=== PATIENT | male | born 1955 | race Caucasian/White ===

== ENCOUNTER 2017-01-31 19:40 | Inpatient (IN) | payer OTHER ==
[~2017-01-31] VITALS: Ht 177.8 cm; Wt 92.3 kg
[~2017-01-31 19:40] MED LIST: ACET325T9 PO; ASPI81TA2 PO; ATOR20TA PO; CALC500T PO; CALC625T7 PO; DOCU-27 PO; FERR-26 PO; FURO-69 PO; ISOS30TA PO; LISI-334 PO; METO25TA9 PO; PANT40GR PO; POTA10TA10 PO; [UNRECOGNIZED DRUG - CODE] PO
[2017-01-31] MEDS ORDERED: NITROGLYCERIN SUBLINGUAL 0.4 MG BOTTLE OF 25. SL PRN ×2 (20:00→21:15)
--- NOTE | 2017-01-31 20:11 | PHYS DOC ---
Past Medical History Past Medical History: SC, Other Additional Past Medical Histor: pt would not give Past Surgical History: Other Additional Past Surgical Histo: pt not willing to give history Alcohol Use: None Drug Use: None Adult General Chief Complaint Chief Complaint: CHEST PAIN HPI HPI 61-year-old male presenting to the emergency room today after having chest pain for the past 3 days. His pain is sharp and burning sensation that he describes as "a hot knife in his chest." He describes it as severe, is mildly improved with nitroglycerin. He took 2 nitroglycerin last night and this morning. 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 He endorses having nausea with vomiting. He also endorses feeling "clammy". He denies unilateral leg swelling hemoptysis sudden onset of the pain. He does have mild shortness of breath. Review of systems is negative for abdominal pain vomiting fevers chills cough. All other review of systems is negative unless otherwise noted in history of present illness. Review of Systems Review of Systems SEE ABOVE. Current Medications Current Medications Current Medications Medications (Trade) Dose Ordered Sig/Briseida Start Time Stop Time Status Last Admin Dose Admin Aspirin (Children'S Aspirin) 324 mg 1X ONCE 01/31/17 20:30 01/31/17 20:31 DC Enoxaparin Sodium (Lovenox 100mg Syringe) 90 mg Q12HR 01/31/17 21:00 Enoxaparin Sodium (Lovenox Per Pharmacy Treatment Dosing) 1 each PRN DAILY PRN 01/31/17 21:00 Morphine Sulfate 2 mg 2 mg PRN Q1HR PRN 01/31/17 20:00 02/01/17 19:59 Nitroglycerin (Nitrostat) 0.4 mg PRN Q5MIN PRN 01/31/17 20:00 01/31/17 20:13 0.4 MG Sodium Chloride (Iv Sodium Chloride 0.9% 500ml Bag) 500 ml @ 500 mls/hr 1X ONCE 01/31/17 20:45 01/31/17 21:44 01/31/17 20:36 500 MLS/HR Allergies Allergies Allergies Coded Allergies Type Severity Reaction Last Updated Verified Penicillins Allergy Intermediate 04/26/14 Yes Physical Exam Physical Exam Constitutional: Well developed, well nourished, patient appears to be in a mild to moderate amount of pain., non-toxic appearance. HENT: Normocephalic, atraumatic, bilateral external ears normal, oropharynx moist, no oral exudates, nose normal. [] Eyes: PERRLA, EOMI, conjunctiva normal, no discharge. [] Neck: Normal range of motion, no tenderness, supple, no stridor. Cardiovascular:Heart rate regular rhythm, no murmur [] Lungs & Thorax: Bilateral breath sounds clear to auscultation [] Abdomen: Bowel sounds normal, soft, no tenderness, no masses, no pulsatile masses. Skin: Warm, dry, no erythema, no rash. [] Back: No tenderness, no CVA tenderness. [] Extremities: No tenderness, no cyanosis, no clubbing, ROM intact, no edema. No evidence of DVT present. Neurologic: Alert and oriented X 3, normal motor function, normal sensory function, no focal deficits noted. [] Psychologic: Affect normal, judgement normal, mood normal. Current Patient Data Vital Signs Vital Signs Date Time Temp Pulse Resp B/P Pulse Ox O2 Delivery O2 Flow Rate FiO2 01/31/17 20:31 72 23 107/73 96 Room Air 01/31/17 19:40 98.3 98.3 Lab Values Laboratory Tests Test 01/31/17 20:15 White Blood Count 7.6x10^3/uL (4.0-11.0) Red Blood Count 4.98x10^6/uL (4.30-5.70) Hemoglobin 14.1g/dL (13.0-17.5) Hematocrit 42.5% (39.0-53.0) Mean Corpuscular Volume 85fL (79-100) Mean Corpuscular Hemoglobin 28pg (25-35) Mean Corpuscular Hemoglobin Concent 33g/dL (31-37) Red Cell Distribution Width 13.6% (11.5-14.5) Platelet Count 213x10^3/uL (140-400) Neutrophils (%) (Auto) 63% (31-73) Lymphocytes (%) (Auto) 24% (24-48) Monocytes (%) (Auto) 10% (0-9) H Eosinophils (%) (Auto) 2% (0-3) Basophils (%) (Auto) 1% (0-3) Neutrophils # (Auto) 4.8x10^3uL (1.8-7.7) Lymphocytes # (Auto) 1.8x10^3/uL (1.0-4.8) Monocytes # (Auto) 0.7x10^3/uL (0.0-1.1) Eosinophils # (Auto) 0.2x10^3/uL (0.0-0.7) Basophils # (Auto) 0.1x10^3/uL (0.0-0.2) Sodium Level 139mmol/L (136-145) Potassium Level 3.8mmol/L (3.5-5.1) Chloride Level 105mmol/L (98-107) Carbon Dioxide Level 25mmol/L (21-32) Anion Gap 9 (6-14) Blood Urea Nitrogen 27mg/dL (8-26) H Creatinine 1.0mg/dL (0.7-1.3) Estimated GFR (Cockcroft-Gault) 76.2 Glucose Level 183mg/dL (70-99) H Calcium Level 8.9mg/dL (8.5-10.1) Total Bilirubin 0.3mg/dL (0.2-1.0) Direct Bilirubin 0.1mg/dL (0.0-0.2) Aspartate Amino Transferase (AST) 29U/L (15-37) Alanine Aminotransferase (ALT) 53U/L (16-63) Alkaline Phosphatase 80U/L (46-116) Troponin I Quantitative 0.164ng/mL (0.000-0.055) WJ-Eyt-M-Type Natriuretic Peptide 132pg/mL (0-124) H Total Protein 7.2g/dL (6.4-8.2) Albumin 3.8g/dL (3.4-5.0) Lipase 150U/L (73-393) Laboratory Tests 01/31/17 20:15 Laboratory Tests 01/31/17 20:15 EKG EKG [] EKG shows sinus rhythm with a regular rate. [place] is leftward. Intervals are within normal limits. The patient's ST segments show mild ST elevation in lead V1 without other anatomically contiguous leads. Mild ST depression in lead 1 and lead two. Does not meet STEMI criteria. Compared to previous on June 302013. Radiology/Procedures Radiology/Procedures [] Course & Med Decision Making Course & Med Decision Making Pertinent Labs and Imaging studies reviewed. (See chart for details) [] 61-year-old gentleman presenting to the emergency department today with chest pain. Vital signs afebrile with a normal heart rate. Satting well on room air. Physical exam showed mild discomfort however otherwise normal exam. EKG obtained which did not meet STEMI criteria. Blood tests obtained. Chest x-ray obtained. CBC unremarkable. Chemistry panel shows uremia otherwise unremarkable. Troponin elevated at 0.16. I discussed the case with Dr. Thomas at 2029. The patient was given Lovenox and then admitted to our cardiovascular care unit for further evaluation workup and care. I discussed the case with Dr. Cottrell at 2029 who excepted the patient for admission at which point the patient's care was transferred. The patient was then admitted to our hospital for further evaluation workup and care. Dragon Disclaimer Dragon Disclaimer This electronic medical record was generated, in whole or in part, using a voice recognition dictation system. Departure Departure Impression: Primary Impression: NSTEMI (non-ST elevated myocardial infarction) Additional Impressions: Chest pain CAD (coronary artery disease) Disposition: ADMITTED INPATIENT Admitting Physician: Lavell Cottrell Condition: STABLE Referrals: JERSEY CAIN (PCP) Problem Qualifiers KARY MANUEL MD Jan 31, 2017 20:11
[2017-01-31 20:25] LABS: BASO # 0.1 x10^3/uL (0.0-0.2); BASO % 1 % (0-3); EOS % 2 % (0-3); HEMATOCRIT 42.5 % (39.0-53.0); HEMOGLOBIN 14.1 g/dL (13.0-17.5); LYMPH # 1.8 x10^3/uL (1.0-4.8); LYMPH % 24 % (24-48); MEAN CORPUSCULAR HEMOGLOBIN 28 pg (25-35); MEAN CORPUSCULAR HGB CONC 33 g/dL (31-37); MEAN CORPUSCULAR VOLUME 85 fL (79-100); MONO % 10 % (0-9); NEUT % 63 % (31-73); PLATELET COUNT 213 x10^3/uL (140-400); RED BLOOD COUNT 4.98 x10^6/uL (4.30-5.70); RED CELL DISTRIBUTION WIDTH 13.6 % (11.5-14.5); WHITE BLOOD COUNT 7.6 x10^3/uL (4.0-11.0)
[2017-01-31] MEDS ORDERED: ASPIRIN CHEWABLE 81 MG TABLET. PO ONE (20:30)
[2017-01-31 20:36] LABS: CALCIUM 8.9 mg/dL (8.5-10.1); GFR 76.2; POTASSIUM 3.8 mmol/L (3.5-5.1)
[2017-01-31 20:42] LABS: ALBUMIN 3.8 g/dL (3.4-5.0); DIRECT BILIRUBIN 0.1 mg/dL (0.0-0.2); TOTAL BILIRUBIN 0.3 mg/dL (0.2-1.0); TOTAL PROTEIN 7.2 g/dL (6.4-8.2)
[2017-01-31] MEDS ORDERED: IV NORMAL SALINE 500ML BAG 500 ML IV ONE (20:45)
[2017-01-31] MEDS ORDERED: ONDANSETRON PF 4 MG/2 ML VIAL. IV PRN (21:15)
[2017-01-31] MEDS ORDERED: MORPHINE SULFATE 2 MG/ML DISP.SYRIN. IV PRN (21:15)
[2017-01-31 22:11] VITALS: BP 145/83
[2017-01-31] MEDS: MORPHINE SULFATE 2 MG/ML DISP.SYRIN. IV PRN (22:59)
[2017-01-31 23:00] VITALS: BP 145/83
[2017-01-31] MEDS ORDERED: NITR0.4T6 SL (23:33)
[2017-01-31] MEDS ORDERED: GEMF600T PO (23:33)
[2017-01-31] MEDS ORDERED: CALC200T3 PO (23:35)
[2017-01-31] MEDS ORDERED: ISOS30TA4 PO (23:35)
[2017-01-31] MEDS ORDERED: METO100T2 PO (23:35)
[2017-01-31] MEDS ORDERED: ISOS60TA2 PO (23:35)
[2017-02-01] MEDS: MORPHINE SULFATE 2 MG/ML DISP.SYRIN. IV PRN ×2 (03:13→06:16)
[2017-02-01 03:30] VITALS: BP 128/71
[2017-02-01 03:31] LABS: BASO # 0.1 x10^3/uL (0.0-0.2); BASO % 1 % (0-3); EOS % 3 % (0-3); HEMOGLOBIN 13.6 g/dL (13.0-17.5); LYMPH # 2.8 x10^3/uL (1.0-4.8); LYMPH % 35 % (24-48); MEAN CORPUSCULAR HEMOGLOBIN 29 pg (25-35); MEAN CORPUSCULAR HGB CONC 33 g/dL (31-37); MEAN CORPUSCULAR VOLUME 86 fL (79-100); MONO % 10 % (0-9); NEUT % 51 % (31-73); PLATELET COUNT 195 x10^3/uL (140-400); RED BLOOD COUNT 4.77 x10^6/uL (4.30-5.70); RED CELL DISTRIBUTION WIDTH 13.2 % (11.5-14.5)
[2017-02-01 03:58] LABS: CALCIUM 8.5 mg/dL (8.5-10.1); CREATININE 0.9 mg/dL (0.7-1.3); GFR 86.1; POTASSIUM 3.7 mmol/L (3.5-5.1)
[2017-02-01 07:00] VITALS: BP 135/79
[2017-02-01] MEDS ORDERED: ONDANSETRON PF 4 MG/2 ML VIAL. IV PRN (08:51)
--- NOTE | 2017-02-01 08:55 | RAD ---
Portable AP upright view CXR: Clinical indications: Chest pain today. Comparison: June 30, 2014 Findings: No acute lung infiltrate or pleural effusion or pulmonary edema or lung mass or pneumothorax is seen. A sternotomy is evident. The heart size, pulmonary vasculature, mediastinum and both denise are unremarkable. Impression: No acute radiographic abnormality is seen.
[2017-02-01] MEDS: GEMFIBROZIL 600 MG TABLET. PO SCH ×2 (10:36→21:00)
[2017-02-01] MEDS: CALCIUM CARBONATE 500 MG TAB.CHEW PO SCH ×2 (10:39→21:00)
[2017-02-01] MEDS: ISOSORBIDE MONONITRATE ER 60 MG TAB.ER.24H. PO SCH (10:39)
[2017-02-01] MEDS: METOPROLOL TART IMMED RELEASE 50 MG TABLET. PO SCH ×2 (10:40→21:00)
[2017-02-01 11:33] VITALS: BP 134/77
--- NOTE | 2017-02-01 11:39 | PDOC1 ---
History and Physical Date of Admission Date of Admission DATE: 02/01/17 TIME: 11:34 Identification/Chief Complaint Chief Complaint chest pains at rest in usp Source Source: Caregiver, Chart review, Patient History of Present Illness History of Present Illness 61 y.o male, incarcerated, cp at rest, described as left sided, knife stabbing reports associated diaphoresis, SOA< and like a panic attack, Known CAD and CABG 2 yrs ago here by Dr. Sánchez, LAs heart attack was Aug 2016 at [facility] in [facility]. NO stents placed he claims, takes ASA 81 at home along with Imdur 30 qhs and 60 qD, claims compliance,. Trops 0.161 2x Morphine he claims just lasts 2 mins Was told by [facility] 2 yrs ago that 40% (lower side of his heart) is not functioning or poorly functional - claims the veins they took from his leg are small and he might get vasospasms intermittently Past Medical History Cardiovascular: CAD, CHF, HTN, Hyperlipidemia Pulmonary: No pertinent hx CENTRAL NERVOUS SYSTEM: Other GI: GERD Heme/Onc: No pertinent hx Hepatobiliary: No pertinent hx Psych: Anxiety, Depression Musculoskeletal: Osteoarthritis Rheumatologic: No pertinent hx Infectious disease: No pertinent hx Renal/: No pertinent hx Endocrine: No pertinent hx Past Surgical History Past Surgical History: CABG Family History Family History: Hypertension, Family History Unknown Social History Smoke: No ALCOHOL: none Drugs: None Current Problem List Problem List Problems Medical Problems: (1) CAD (coronary artery disease) Status: Acute (2) Chest pain Status: Acute (3) NSTEMI (non-ST elevated myocardial infarction) Status: Acute Problems: Current Medications Current Medications Current Medications Aspirin (Children'S Aspirin) 324 mg 1X ONCE PO ; Start 01/31/17 at 20:30; Stop 01/31/17 at 20:31; Status DC Nitroglycerin (Nitrostat) 0.4 mg PRN Q5MIN PRN SL CHEST PAIN Last administered on 01/31/17 20:13; Start 01/31/17 at 20:00; Stop 01/31/17 at 21:08; Status DC Morphine Sulfate 2 mg 2 mg PRN Q1HR PRN IV SEVERE PAIN Last administered on 02/01 06:16; Start 01/31/17 at 20:00; Stop 02/01/17 at 06:16; Status DC Sodium Chloride (Iv Sodium Chloride 0.9% 500ml Bag) 500 ml @ 500 mls/hr 1X ONCE IV Last administered on 01/31/17 20:36; Start 01/31/17 at 20:45; Stop at 21:44; Status DC Enoxaparin Sodium (Lovenox Per Pharmacy Treatment Dosing) 1 each PRN DAILY PRN MC SEE COMMENTS; Start 01/31/17 at 21:00 Enoxaparin Sodium (Lovenox 100mg Syringe) 90 mg Q12HR SQ Last administered on 10:37; Start 01/31/17 at 21:00 Ondansetron HCl (Zofran) 4 mg PRN Q8HRS PRN IV NAUSEA/VOMITING; Start 01/31/17 at 21:15; Stop 02/01/17 at 08:53; Status DC Morphine Sulfate 2 mg PRN Q2HR PRN IV PAIN Last administered on 02/01/17 10:42 ; Start 01/31/17 at 21:15; Stop 02/01/17 at 21:14 Nitroglycerin (Nitrostat) 0.4 mg PRN Q5MIN PRN SL CHEST PAIN; Start 01/31/17 at 21:15; Stop 02/01/17 at 21:14 Ondansetron HCl (Zofran) 4 mg PRN Q6HRS PRN IV NAUSEA/VOMITING; Start 02/01/17 at 08:51 Aspirin (Children'S Aspirin) 81 mg HS PO ; Start 02/01/17 at 21:00 Calcium Carbonate/ Glycine (Tums) 500 mg BID PO Last administered on 02/01/17 10:39; Start 02/01/17 at 09:00 Gemfibrozil (Lopid) 600 mg BID PO Last administered on 02/01/17 10:36; Start at 09:00 Isosorbide Mononitrate (Imdur) 30 mg HS PO ; Start 02/01/17 at 21:00 Isosorbide Mononitrate (Imdur) 60 mg DAILY PO Last administered on 02/01/17 10: 39; Start 02/01/17 at 09:00 Nitroglycerin (Nitrostat) 0.4 mg PRN Q5MIN PRN SL CHEST PAIN; Start 02/01/17 at 09:00 Metoprolol Tartrate (Lopressor) 100 mg BID PO Last administered on 02/01/17t 10: 40; Start 02/01/17 at 09:15 Active Scripts Active Reported Isosorbide Mononitrate Er (Isosorbide Mononitrate) 30 Mg Tab.er.24h 1 Tab PO HS Isosorbide Mononitrate Er (Isosorbide Mononitrate) 60 Mg Tab.er.24h 1 Tab PO DAILY Metoprolol Tartrate 100 Mg Tablet 1 Tab PO BID Tums (Calcium Carbonate) 200 Mg Tab.chew 400 Mg PO BID Lopid (Gemfibrozil) 600 Mg Tablet 2 Tab PO BID NITROGLYCERIN SubLingual (Nitroglycerin) 0.4 Mg Tab.subl 0.4 Mg SL PRN Q5MIN PRN Aspirin 81 Mg Tab.chew 81 Mg PO HS Allergies Allergies: Coded Allergies: Penicillins (Verified Allergy, Intermediate, 04/26/14) ROS General: No: Appetite, Chills, Fatigue, Malaise, Night Sweats, Other PSYCHOLOGICAL ROS: YES: Anxiety, No: Behavioral Disorder, Concentration difficultie, Decreased libido, Depression, Disorientation, Hallucinations, Hostility, Irritablity, Memory difficulties, Mood Swings, Obsessive thoughts, Other, Physical abuse, Sexual abuse, Sleep disturbances, Suicidal ideation Eyes: No Blurry vision, No Decreased vision, No Double vision, No Dry eyes, No Excessive tearing, No Eye Pain, No Itchy Eyes, No Loss of vision, No Other, No Photophobia, No Scotomata, No Uses contacts, No Uses glasses ALLERGY AND IMMUNOLOGY: YES: Hives, Insect Bite Sensitivity, Itchy/Watery Eyes , Nasal Congestion, Other, Post Nasal Drip, Seasonal Allergies Hematological and Lymphatic: No: Bleeding Problems, Blood Clots, Blood Transfusions, Brusing, Night Sweats, Other, Pallor, Swollen Lymph Nodes ENDOCRINE: No: Breast Changes, Galactorrhea, Hair Pattern Changes, Hot Flashes , Malaise/lethargy, Mood Swings, Other, Palpitations, Polydipsia/polyuria, Skin Changes, Temperature Intolerance, Unexpected Weight Changes Breast: No New/Changing Breast Lumps, No Nipple changes, No Nipple discharge, No Other Respiratory: YES: SOB with excertion, Shortness of breath Cardiovascular: yes Chest Pain Gastrointestinal: No Abdominal Pain, No Constipation, No Diarrhea, No Hematochezia, No Melena, No Nausea, No Other, No Vomiting Genitourinary: No , No , No , No , No , No , No , No Discharge, No Dysuria, No Flank Pain, No Frequency, No Hematuria, No Incontinence, No Other, No Pain, No Retention, No Urgency Musculoskeletal: No Gait Disturbance, No Joint Pain, No Joint Stiffness, No Joint Swelling, No Muscle Pain, No Muscular Weakness, No Other, No Pain In:, No Swelling In: Neurological: No Behavorial Changes, No Bowel/Bladder ControlChng, No Confusion , No Dizziness, No Gait Disturbance, No Headaches, No Impaired Coord/balance, No Memory Loss, No Numbness/Tingling, No Other, No Seizures, No Speech Problems , No Tremors, No Visual Changes, No Weakness Skin: No Acne, No Dry Skin, No Eczema, No Hair Changes, No Lumps, No Mole Changes, No Mottling, No Nail Changes, No Other, No Pruritus, No Rash, No Skin Lesion Changes Physical Exam General: Alert, Oriented X3, Cooperative, No acute distress HEENT: Atraumatic, PERRLA, EOMI Lungs: Clear to auscultation, Normal air movement Heart: S1S2, RRR, no thrills, no gallops, no murmurs Cardiovascular: S1, S2 Breasts: Normal, Rt breast nml w/o mass, Lt breast nml w/o mass, Nipples normal Abdomen: Normal bowel sounds, Soft, No tenderness, No hepatosplenomegaly, No masses Rectal Exam: not examined PELVIC: Nml ext genitalia Extremities: No clubbing, No cyanosis, No edema, Normal pulses, No tenderness/ swelling Skin: No rashes, No breakdown, No significant lesion Neuro: Normal gait, Normal speech, Strength at 5/5 X4 ext, Normal tone, Sensation intact, Cranial nerves 3-12 NL, Reflexes 2+ Psych/Mental Status: Mental status NL, Mood NL Vitals Vitals Vital Signs Date Time Temp Pulse Resp B/P Pulse Ox O2 Delivery O2 Flow Rate FiO2 02/01/17 10:42 97 02/01/17 10:40 82 134/77 02/01/17 07:00 97.4 18 Room Air 97.4 Labs Labs Laboratory Tests Test 01/31/17 20:15 02/01/17 02:30 02/01/17 08:40 White Blood Count 7.6x10^3/uL (4.0-11.0) 8.0x10^3/uL (4.0-11.0) Red Blood Count 4.98x10^6/uL (4.30-5.70) 4.77x10^6/uL (4.30-5.70) Hemoglobin 14.1g/dL (13.0-17.5) 13.6g/dL (13.0-17.5) Hematocrit 42.5% (39.0-53.0) 41.0% (39.0-53.0) Mean Corpuscular Volume 85fL (79-100) 86fL (79-100) Mean Corpuscular Hemoglobin 28pg (25-35) 29pg (25-35) Mean Corpuscular Hemoglobin Concent 33g/dL (31-37) 33g/dL (31-37) Red Cell Distribution Width 13.6% (11.5-14.5) 13.2% (11.5-14.5) Platelet Count 213x10^3/uL (140-400) 195x10^3/uL (140-400) Neutrophils (%) (Auto) 63% (31-73) 51% (31-73) Lymphocytes (%) (Auto) 24% (24-48) 35% (24-48) Monocytes (%) (Auto) 10% (0-9) 10% (0-9) Eosinophils (%) (Auto) 2% (0-3) 3% (0-3) Basophils (%) (Auto) 1% (0-3) 1% (0-3) Neutrophils # (Auto) 4.8x10^3uL (1.8-7.7) 4.1x10^3uL (1.8-7.7) Lymphocytes # (Auto) 1.8x10^3/uL (1.0-4.8) 2.8x10^3/uL (1.0-4.8) Monocytes # (Auto) 0.7x10^3/uL (0.0-1.1) 0.8x10^3/uL (0.0-1.1) Eosinophils # (Auto) 0.2x10^3/uL (0.0-0.7) 0.2x10^3/uL (0.0-0.7) Basophils # (Auto) 0.1x10^3/uL (0.0-0.2) 0.1x10^3/uL (0.0-0.2) Sodium Level 139mmol/L (136-145) 143mmol/L (136-145) Potassium Level 3.8mmol/L (3.5-5.1) 3.7mmol/L (3.5-5.1) Chloride Level 105mmol/L (98-107) 107mmol/L (98-107) Carbon Dioxide Level 25mmol/L (21-32) 26mmol/L (21-32) Anion Gap 9 (6-14) 10 (6-14) Blood Urea Nitrogen 27mg/dL (8-26) 24mg/dL (8-26) Creatinine 1.0mg/dL (0.7-1.3) 0.9mg/dL (0.7-1.3) Estimated GFR (Cockcroft-Gault) 76.2 86.1 Glucose Level 183mg/dL (70-99) 130mg/dL (70-99) Calcium Level 8.9mg/dL (8.5-10.1) 8.5mg/dL (8.5-10.1) Total Bilirubin 0.3mg/dL (0.2-1.0) Direct Bilirubin 0.1mg/dL (0.0-0.2) Aspartate Amino Transf (AST/SGOT) 29U/L (15-37) Alanine Aminotransferase (ALT/SGPT) 53U/L (16-63) Alkaline Phosphatase 80U/L (46-116) Troponin I Quantitative 0.164ng/mL (0.000-0.055) 0.161ng/mL (0.000-0.055) 0.155ng/mL (0.000-0.055) IM-Uhl-T-Type Natriuretic Peptide 132pg/mL (0-124) Total Protein 7.2g/dL (6.4-8.2) Albumin 3.8g/dL (3.4-5.0) Lipase 150U/L (73-393) Laboratory Tests Test 01/31/17 20:15 02/01/17 02:30 02/01/17 08:40 White Blood Count 7.6x10^3/uL (4.0-11.0) 8.0x10^3/uL (4.0-11.0) Red Blood Count 4.98x10^6/uL (4.30-5.70) 4.77x10^6/uL (4.30-5.70) Hemoglobin 14.1g/dL (13.0-17.5) 13.6g/dL (13.0-17.5) Hematocrit 42.5% (39.0-53.0) 41.0% (39.0-53.0) Mean Corpuscular Volume 85fL (79-100) 86fL (79-100) Mean Corpuscular Hemoglobin 28pg (25-35) 29pg (25-35) Mean Corpuscular Hemoglobin Concent 33g/dL (31-37) 33g/dL (31-37) Red Cell Distribution Width 13.6% (11.5-14.5) 13.2% (11.5-14.5) Platelet Count 213x10^3/uL (140-400) 195x10^3/uL (140-400) Neutrophils (%) (Auto) 63% (31-73) 51% (31-73) Lymphocytes (%) (Auto) 24% (24-48) 35% (24-48) Monocytes (%) (Auto) 10% (0-9) 10% (0-9) Eosinophils (%) (Auto) 2% (0-3) 3% (0-3) Basophils (%) (Auto) 1% (0-3) 1% (0-3) Neutrophils # (Auto) 4.8x10^3uL (1.8-7.7) 4.1x10^3uL (1.8-7.7) Lymphocytes # (Auto) 1.8x10^3/uL (1.0-4.8) 2.8x10^3/uL (1.0-4.8) Monocytes # (Auto) 0.7x10^3/uL (0.0-1.1) 0.8x10^3/uL (0.0-1.1) Eosinophils # (Auto) 0.2x10^3/uL (0.0-0.7) 0.2x10^3/uL (0.0-0.7) Basophils # (Auto) 0.1x10^3/uL (0.0-0.2) 0.1x10^3/uL (0.0-0.2) Sodium Level 139mmol/L (136-145) 143mmol/L (136-145) Potassium Level 3.8mmol/L (3.5-5.1) 3.7mmol/L (3.5-5.1) Chloride Level 105mmol/L (98-107) 107mmol/L (98-107) Carbon Dioxide Level 25mmol/L (21-32) 26mmol/L (21-32) Anion Gap 9 (6-14) 10 (6-14) Blood Urea Nitrogen 27mg/dL (8-26) 24mg/dL (8-26) Creatinine 1.0mg/dL (0.7-1.3) 0.9mg/dL (0.7-1.3) Estimated GFR (Cockcroft-Gault) 76.2 86.1 Glucose Level 183mg/dL (70-99) 130mg/dL (70-99) Calcium Level 8.9mg/dL (8.5-10.1) 8.5mg/dL (8.5-10.1) Total Bilirubin 0.3mg/dL (0.2-1.0) Direct Bilirubin 0.1mg/dL (0.0-0.2) Aspartate Amino Transf (AST/SGOT) 29U/L (15-37) Alanine Aminotransferase (ALT/SGPT) 53U/L (16-63) Alkaline Phosphatase 80U/L (46-116) Troponin I Quantitative 0.164ng/mL (0.000-0.055) 0.161ng/mL (0.000-0.055) 0.155ng/mL (0.000-0.055) IU-Ibm-F-Type Natriuretic Peptide 132pg/mL (0-124) Total Protein 7.2g/dL (6.4-8.2) Albumin 3.8g/dL (3.4-5.0) Lipase 150U/L (73-393) VTE Prophylaxis Ordered VTE Prophylaxis Devices: Yes VTE Pharmacological Prophylaxi: Yes Assessment/Plan Assessment/Plan 1. CP possible vasospasm, need to r.o Acute ACS 2. [place] CAD hx [place] and CABG 3. Incarcerated 4. Anxiety NOS 5, Trop leak PLAN: Add xanax Follow cards recs WIshes Dr. Martins to see him Sofi emds resumed MAXIMO De Guzman RN, MD Feb 01, 2017 11:39
[2017-02-01] MEDS ORDERED: ALPRAZOLAM 0.25 MG TABLET. PO PRN (11:45)
[2017-02-01] MEDS ORDERED: ALPRAZOLAM 0.5 MG TABLET. PO PRN (12:00)
--- NOTE | 2017-02-01 12:32 | EKG ---
[facility] [address] [place] [address] Test Date: 2017-01-31 Test Time: 19:50:52 Pat Name: LOGAN SCOTT Department: Room: Gender: M Posting Specialist: : [id number] Requested By: KARY MANUEL Order Number: [id number] Reading MD: Measurements Intervals [place] Rate: 72 P: 34 UT: 134 QRS: 27 QRSD: 94 T: -167 QT: 376 QTc: 413 Interpretive Statements SINUS RHYTHM QRS(T) CONTOUR ABNORMALITY CONSIDER ANTEROLATERAL MYOCARDIAL DAMAGE ST & T ABNORMALITY, CONSIDER INFERIOR ISCHEMIA OR LEFT VENTRICULAR STRAIN ABNORMAL ECG RI6.01 No previous ECG available for comparison
--- NOTE | 2017-02-01 12:34 | EKG ---
[facility] [address] [place] [address] Test Date: 2017-01-31 Test Time: 21:16:06 Pat Name: LOGAN SCOTT Department: Room: 208 1 Gender: M Regulatory Leader: : [id number] Requested By: JUAN DEJESUS Order Number: [id number] Reading MD: Measurements Intervals [place] Rate: 67 P: 35 [place]: 136 QRS: 34 QRSD: 84 T: -134 QT: 392 QTc: 417 Interpretive Statements SINUS RHYTHM QRS(T) CONTOUR ABNORMALITY CONSIDER ANTEROSEPTAL MYOCARDIAL DAMAGE ST & T ABNORMALITY, CONSIDER HIGH LATERAL ISCHEMIA OR LEFT VENTRICULAR STRAIN INFERIOR ISCHEMIA OR LEFT VENTRICULAR STRAIN T ABNORMALITY IN LATERAL LEADS ABNORMAL ECG RI6.01 No previous ECG available for comparison
[2017-02-01 15:42] VITALS: BP 114/66
--- NOTE | 2017-02-01 18:30 | PDOC ---
Provider Note Provider Note Covering for Dr. Modi. He describes the pain as being sharp pains in the retrosternal area and over the precordium. He has associated diaphoresis. He has had these pains for several years but for the last 3 days they have been more frequent. He had open heart surgery in April 2014. AMARAL to LAD, SVG to right coronary artery, SVG to OM and then to OM 2. He underwent cardiac catheterization in July 2014 for chest pain. All the grafts were open. Normal LV function. He says he was in [place] in August 2016 and underwent coronary arteriograms. He is unable to tell me whether the grafts were open or no. In any case I do not think any intervention was done. He did say that at that time his troponin was 0.29. Heart sounds are normal. Lung lowry are clear. EKG shows inverted T waves in leads I, II, III, aVF and V4 to V6. Last EKG we have was from 2013 and the T waves were not inverted at that time. Persistent mild elevation of the troponin at 0.16. He says he it's been a many years since he had an MPI. Because of the mild elevation in the troponin and EKG changes we will schedule an MPI for tomorrow. Dr. Modi returns tomorrow. JUAN DEJESUS MD Feb 01, 2017 18:30
[2017-02-01 19:40] VITALS: BP 112/65
[2017-02-01] MEDS: ASPIRIN CHEWABLE 81 MG TABLET. PO SCH (21:00)
[2017-02-01] MEDS: ISOSORBIDE MONONITRATE ER 30 MG TAB.ER.24H PO SCH (21:00)
[2017-02-01 23:35] VITALS: BP 109/60
[2017-02-02 03:15] VITALS: BP 102/58
[2017-02-02 05:26] LABS: CHOLESTEROL/HDL RATIO 5.9
[2017-02-02 07:59] VITALS: BP 125/70
[2017-02-02] MEDS ORDERED: REGADENOSON 0.4 MG/5 ML DISP.SYRIN. IV ONE (08:15)
[2017-02-02] MEDS ORDERED: ANTI-COAG MONITOR BY PHARMACY. MC PRN (08:45)
[2017-02-02] MEDS: CALCIUM CARBONATE 500 MG TAB.CHEW PO SCH ×2 (09:00→20:35)
--- NOTE | 2017-02-02 12:08 | PDOC2 ---
CONSULT Date of Consult Date of Consult DATE: 02/02/17 TIME: 12:05 Reason for Consult Reason for Consult: NSTEMI Identification/Chief Complaint Chief Complaint Chest pain Source Source: Chart review, Patient History of Present Illness Reason for Visit: Mr. Spaulding is an incarcerated patient. Brought to the hospital for repeated bouts of sharp, stabbing, left sided chest pain for the past 3 days and associated SOB. Troponins were elevated in the ER at 0.164. He was subsequently admitted. Presently, he has not had any chest pain overnight or associated SOB. Past Medical History Cardiovascular: CAD, CHF, HTN, Hyperlipidemia Pulmonary: No pertinent hx CENTRAL NERVOUS SYSTEM: Other GI: GERD Heme/Onc: No pertinent hx Hepatobiliary: No pertinent hx Psych: Anxiety, Depression Musculoskeletal: Osteoarthritis Rheumatologic: No pertinent hx Infectious disease: No pertinent hx Renal/: No pertinent hx Endocrine: No pertinent hx Past Surgical History Past Surgical History: CABG Family History Family History: Hypertension, Family History Unknown Social History No ALCOHOL: none Drugs: None Lives: Roommate Domestic Violence: Neg Current Problem List Problem List Problems Medical Problems: (1) CAD (coronary artery disease) Status: Acute (2) Chest pain Status: Acute (3) NSTEMI (non-ST elevated myocardial infarction) Status: Acute Current Medications Current Medications Current Medications Aspirin (Children'S Aspirin) 324 mg 1X ONCE PO ; Start 01/31/17 at 20:30; Stop 01/31/17 at 20:31; Status DC Nitroglycerin (Nitrostat) 0.4 mg PRN Q5MIN PRN SL CHEST PAIN Last administered on 01/31/17 20:13; Start 01/31/17 at 20:00; Stop 01/31/17 at 21:08; Status DC Morphine Sulfate 2 mg 2 mg PRN Q1HR PRN IV SEVERE PAIN Last administered on 02/01 06:16; Start 01/31/17 at 20:00; Stop 02/01/17 at 06:16; Status DC Sodium Chloride (Iv Sodium Chloride 0.9% 500ml Bag) 500 ml @ 500 mls/hr 1X ONCE IV Last administered on 01/31/17 20:36; Start 01/31/17 at 20:45; Stop at 21:44; Status DC Enoxaparin Sodium (Lovenox Per Pharmacy Treatment Dosing) 1 each PRN DAILY PRN MC SEE COMMENTS; Start 01/31/17 at 21:00 Enoxaparin Sodium (Lovenox 100mg Syringe) 90 mg Q12HR SQ Last administered on 10:37; Start 01/31/17 at 21:00 Ondansetron HCl (Zofran) 4 mg PRN Q8HRS PRN IV NAUSEA/VOMITING; Start 01/31/17 at 21:15; Stop 02/01/17 at 08:53; Status DC Morphine Sulfate 2 mg PRN Q2HR PRN IV PAIN Last administered on 02/01/17 10:42 ; Start 01/31/17 at 21:15; Stop 02/01/17 at 21:14; Status DC Nitroglycerin (Nitrostat) 0.4 mg PRN Q5MIN PRN SL CHEST PAIN; Start 01/31/17 at 21:15; Stop 02/01/17 at 14:02; Status DC Ondansetron HCl (Zofran) 4 mg PRN Q6HRS PRN IV NAUSEA/VOMITING; Start 02/01/17 at 08:51 Aspirin (Children'S Aspirin) 81 mg HS PO ; Start 02/01/17 at 21:00 Calcium Carbonate/ Glycine (Tums) 500 mg BID PO Last administered on 02/01/17 10:39; Start 02/01/17 at 09:00 Gemfibrozil (Lopid) 600 mg BID PO Last administered on 02/01/17 10:36; Start at 09:00 Isosorbide Mononitrate (Imdur) 30 mg HS PO ; Start 02/01/17 at 21:00 Isosorbide Mononitrate (Imdur) 60 mg DAILY PO Last administered on 02/01/17 10: 39; Start 02/01/17 at 09:00 Nitroglycerin (Nitrostat) 0.4 mg PRN Q5MIN PRN SL CHEST PAIN; Start 02/01/17 at 09:00 Metoprolol Tartrate (Lopressor) 100 mg BID PO Last administered on 02/01/17 10: 40; Start 02/01/17 at 09:15 Alprazolam (Xanax) 0.25 mg PRN Q8HRS PRN PO ANXIETY / AGITATION Last administered on 02/01/17 11:44; Start 02/01/17 at 11:45; Stop 02/01/17 at 11:51; Status DC Oxycodone/ Acetaminophen (Percocet 5/325) 1 tab PRN Q6HRS PRN PO PAIN; Start at 11:45 Alprazolam (Xanax) 0.5 mg PRN Q6HRS PRN PO ANXIETY / AGITATION; Start 02/01/17 at 12:00 Regadenoson (Lexiscan) 0.4 mg 1X ONCE IV Last administered on 02/02/17 11:16 ; Start 02/02/17 at 08:15; Stop 02/02/17 at 08:18; Status DC Info (Anti-Coagulation Monitoring By Pharmacy) 1 each PRN DAILY PRN MC SEE COMMENTS Last administered on 02/02/17 08:33; Start 02/02/17 at 08:45 Active Scripts Active Reported Isosorbide Mononitrate Er (Isosorbide Mononitrate) 30 Mg Tab.er.24h 1 Tab PO HS Isosorbide Mononitrate Er (Isosorbide Mononitrate) 60 Mg Tab.er.24h 1 Tab PO DAILY Metoprolol Tartrate 100 Mg Tablet 1 Tab PO BID Tums (Calcium Carbonate) 200 Mg Tab.chew 400 Mg PO BID Lopid (Gemfibrozil) 600 Mg Tablet 2 Tab PO BID NITROGLYCERIN SubLingual (Nitroglycerin) 0.4 Mg Tab.subl 0.4 Mg SL PRN Q5MIN PRN Aspirin 81 Mg Tab.chew 81 Mg PO HS Allergies Allergies: Coded Allergies: Penicillins (Verified Allergy, Intermediate, 04/26/14) Physical Exam General: Alert, Oriented X3, Cooperative, No acute distress HEENT: Atraumatic, EOMI Lungs: Clear to auscultation, Normal air movement Heart: Regular rate, Normal S1, Normal S2 Extremities: No clubbing, No cyanosis, No edema Neuro: Normal speech Vitals VITALS Vital Signs Date Time Temp Pulse Resp B/P Pulse Ox O2 Delivery O2 Flow Rate FiO2 02/02/17 08:00 Room Air 02/02/17 07:59 97.9 70 20 125/70 97 97.9 Labs Labs Laboratory Tests Test 01/31/17 20:15 01/31/17 23:36 02/01/17 02:30 02/01/17 08:40 White Blood Count 7.6x10^3/uL (4.0-11.0) 8.0x10^3/uL (4.0-11.0) Red Blood Count 4.98x10^6/uL (4.30-5.70) 4.77x10^6/uL (4.30-5.70) Hemoglobin 14.1g/dL (13.0-17.5) 13.6g/dL (13.0-17.5) Hematocrit 42.5% (39.0-53.0) 41.0% (39.0-53.0) Mean Corpuscular Volume 85fL (79-100) 86fL (79-100) Mean Corpuscular Hemoglobin 28pg (25-35) 29pg (25-35) Mean Corpuscular Hemoglobin Concent 33g/dL (31-37) 33g/dL (31-37) Red Cell Distribution Width 13.6% (11.5-14.5) 13.2% (11.5-14.5) Platelet Count 213x10^3/uL (140-400) 195x10^3/uL (140-400) Neutrophils (%) (Auto) 63% (31-73) 51% (31-73) Lymphocytes (%) (Auto) 24% (24-48) 35% (24-48) Monocytes (%) (Auto) 10% (0-9) 10% (0-9) Eosinophils (%) (Auto) 2% (0-3) 3% (0-3) Basophils (%) (Auto) 1% (0-3) 1% (0-3) Neutrophils # (Auto) 4.8x10^3uL (1.8-7.7) 4.1x10^3uL (1.8-7.7) Lymphocytes # (Auto) 1.8x10^3/uL (1.0-4.8) 2.8x10^3/uL (1.0-4.8) Monocytes # (Auto) 0.7x10^3/uL (0.0-1.1) 0.8x10^3/uL (0.0-1.1) Eosinophils # (Auto) 0.2x10^3/uL (0.0-0.7) 0.2x10^3/uL (0.0-0.7) Basophils # (Auto) 0.1x10^3/uL (0.0-0.2) 0.1x10^3/uL (0.0-0.2) Sodium Level 139mmol/L (136-145) 143mmol/L (136-145) Potassium Level 3.8mmol/L (3.5-5.1) 3.7mmol/L (3.5-5.1) Chloride Level 105mmol/L (98-107) 107mmol/L (98-107) Carbon Dioxide Level 25mmol/L (21-32) 26mmol/L (21-32) Anion Gap 9 (6-14) 10 (6-14) Blood Urea Nitrogen 27mg/dL (8-26) 24mg/dL (8-26) Creatinine 1.0mg/dL (0.7-1.3) 0.9mg/dL (0.7-1.3) Estimated GFR (Cockcroft-Gault) 76.2 86.1 Glucose Level 183mg/dL (70-99) 130mg/dL (70-99) Calcium Level 8.9mg/dL (8.5-10.1) 8.5mg/dL (8.5-10.1) Total Bilirubin 0.3mg/dL (0.2-1.0) Direct Bilirubin 0.1mg/dL (0.0-0.2) Aspartate Amino Transf (AST/SGOT) 29U/L (15-37) Alanine Aminotransferase (ALT/SGPT) 53U/L (16-63) Alkaline Phosphatase 80U/L (46-116) Troponin I Quantitative 0.164ng/mL (0.000-0.055) 0.161ng/mL (0.000-0.055) 0.155ng/mL (0.000-0.055) VW-Yet-I-Type Natriuretic Peptide 132pg/mL (0-124) Total Protein 7.2g/dL (6.4-8.2) Albumin 3.8g/dL (3.4-5.0) Lipase 150U/L (73-393) Nasal Screen MRSA (PCR) Negative (Negative) Test 02/02/17 03:25 Triglycerides Level 138mg/dL (0-150) Cholesterol Level 165mg/dL (0-200) LDL Cholesterol, Calculated 109mg/dL (0-100) VLDL Cholesterol, Calculated 28mg/dL (0-40) HDL Cholesterol 28mg/dL (40-60) Cholesterol/HDL Ratio 5.9 Laboratory Tests Test 02/02/17 03:25 Triglycerides Level 138mg/dL (0-150) Cholesterol Level 165mg/dL (0-200) LDL Cholesterol, Calculated 109mg/dL (0-100) VLDL Cholesterol, Calculated 28mg/dL (0-40) HDL Cholesterol 28mg/dL (40-60) Cholesterol/HDL Ratio 5.9 Assessment/Plan Assessment/Plan Assessment: NSTEMI CAD s/p CABG 2014 Plan: Stress MPI test performed - awaiting results Echocardiogram Continue medications Thank you GEMINI BLANK MD Feb 02, 2017 12:08
[2017-02-02] MEDS: GEMFIBROZIL 600 MG TABLET. PO SCH ×2 (12:21→20:35)
[2017-02-02] MEDS: ISOSORBIDE MONONITRATE ER 60 MG TAB.ER.24H. PO SCH (12:23)
[2017-02-02] MEDS: METOPROLOL TART IMMED RELEASE 50 MG TABLET. PO SCH ×2 (12:24→20:36)
[2017-02-02] MEDS: NITROGLYCERIN SUBLINGUAL 0.4 MG BOTTLE OF 25. SL PRN (13:05)
[2017-02-02] MEDS: OXYCODONE/APAP 5/325 TABLET. PO PRN ×2 (13:09→20:36)
--- NOTE | 2017-02-02 14:16 | PDOC ---
PROGRESS NOTES Chief Complaint Chief Complaint Chest pain ASSESSMENT AND PLAN: 1. Troponin leak: sl elevted troponin, unchanged x3. MPI done; awaiting results 2. CAD: hx MS and CABG in 2014 3. HTN: well controlled 4. HLD: on lopid 5. AnxietyPTSD acc to pt: xanax sparingly; no psych home meds 6. "Guest of the State": ?2ary gain in hospitalization; avoiding getting "put into the box" Vitals Vitals Vital Signs Date Time Temp Pulse Resp B/P Pulse Ox O2 Delivery O2 Flow Rate FiO2 02/02/17 13:09 97 Room Air 02/02/17 13:05 80 121/62 02/02/17 07:59 97.9 20 97.9 Physical Exam General: Alert, Oriented X3, Cooperative, No acute distress Heart: Regular rate, Normal S1, Normal S2 Lungs: Clear Abdomen: Normal bowel sounds, Soft, No tenderness, No hepatosplenomegaly, No masses Extremities: No clubbing, No cyanosis, No edema Skin: No rashes, No breakdown, No significant lesion Labs LABS Laboratory Tests Test 02/02/17 03:25 Triglycerides Level 138mg/dL (0-150) Cholesterol Level 165mg/dL (0-200) LDL Cholesterol, Calculated 109mg/dL (0-100) VLDL Cholesterol, Calculated 28mg/dL (0-40) HDL Cholesterol 28mg/dL (40-60) Cholesterol/HDL Ratio 5.9 Review of Systems Review of Systems no acute CP, SOB or other c/o JOHNSON DOBBINS MD Feb 02, 2017 14:16
[2017-02-02 15:00] VITALS: BP 144/77
[2017-02-02 19:50] VITALS: BP 106/69
[2017-02-02] MEDS: ISOSORBIDE MONONITRATE ER 30 MG TAB.ER.24H PO SCH (20:35)
[2017-02-02] MEDS: ALPRAZOLAM 0.5 MG TABLET. PO PRN (20:35)
[2017-02-02] MEDS: ASPIRIN CHEWABLE 81 MG TABLET. PO SCH (20:36)
--- NOTE | 2017-02-02 21:40 | RAD ---
APPROVED REPORT Test Type: Pharmacological Stress Nurse/Tech: Tiara Lloyd R.N. Test Indications: chest pain, elevated trop Cardiac History: 2014 bypass, mi 08/2016, htn Medications: see ehr Medical History: see ehr Resting ECG: SR with pvc, inverted T waves, ST depression Lead II, III, v5-6 Resting Heart Rate: 67 bpm Resting Blood Pressure: 135/73mmHg Pretest Chest Pain: No chest pain Nurse/Tech Notes lungs cta, heart tones regular, good radial pulse Consent: The procedure was explained to the patient in lay terms. Informed consent was witnessed. Srikanth eout was entered into [employer]. History and Stress Test performed by Tiara Lloyd R.N. Pharm. Details Pharmacologic stress testing was performed using 0.4mg per 5ml of regadenoson given intravenously ove r 7-10 seconds. Stress Symptoms pt c/o chest tightness/squeezing throughout POST EXERCISE Reason for Termination: Infusion complete Max HR: 91 bpm Max Blood Pressure: 138/79mmHg Chest Pain: Yes. see above, same throughout Arrhythmia: Yes. unifocal pvc ST Change: No. same throughout Imaging Protocol IMAGE PROTOCOL: Rest Tc-99m/stress Tc-99m 1 day Rest: Stress: Viability: Radiopharm.Tc99m [id number] Sestamibi [id number] 34mCi Duration 15min. 12min. Img Date 02/02/2017 02/02/2017 Inj-Img [id number]. 60min. Rest Admin Site:IV - Right AntecubitalAdministrator:Ricky Lemus RT (R)(N) Stress Admin Site: IV - Right AntecubitalAdministrator: Yessenia Giraldo RT (R)(N) STRESS DATA End Diast. Vol.92.0mlAv. Heart Rate81.0bpm End Syst. Vol.28.0mlCO Index BSA0.0L/min Myocardial Rtbq404.0gEject. Zyhncdqf69.0% Stress Rates Pk. Fill Rate3.72EDV/secLVtime Pk. Fill 211.49msec Pk. Empty Rate4.27ESV/secLVtime Pk. Zwolk881.57msec 1/3 Pk. Fill1.35EDV/sec Stress Scores Regional WT1.00Summed WT9.00 Regional WM0.00Summed WM7.00 LV Perf. Quant 17 Seg. SSS3.00 17 Seg. SRS4.00 17 Seg. SDS0.00 Stress Defect Extent (% LAD)0.00Rest Defect Extent (% LAD)0.00Rev. Defect Extent (% LAD)0.00 Stress Defect Extent (% LCX) 33.80Rest Defect Extent (% LCX)45.00Rev. Defect Extent (% LCX)0.00 Stress Defect Extent (% RCA)0.00Rest Defect Extent (% RCA)0.00Rev. Defect Extent (% RCA)0.00 Stress Defect Extent (% SIVA)7.60Rest Defect Extent (% SIVA)9.60Rev. Defect Extent (% SIVA)0.00 Conclusion 1. The baseline electro cardiogram showed inverted T waves in the inferolateral leads. 2. There was no ST segment depression with pharmacological stress. 3. There is a moderate sized mixed perfusion defect over the lateral wall. 4. There is no significant ischemia. 5. This would correspond to the SVG that was grafted to OM1 and OM 2 both of which are small vessels. 6. Normal wall motion and wall thickening with an ejection fraction of 70%. 7. Scan indicates low risk for future cardiac events.
[2017-02-02 23:20] VITALS: BP 108/63
[2017-02-03 03:30] VITALS: BP 108/61
[2017-02-03 07:59] VITALS: BP 121/74
[2017-02-03] MEDS: CALCIUM CARBONATE 500 MG TAB.CHEW PO SCH (08:53)
[2017-02-03] MEDS: GEMFIBROZIL 600 MG TABLET. PO SCH (08:53)
[2017-02-03] MEDS: METOPROLOL TART IMMED RELEASE 50 MG TABLET. PO SCH (08:56)
[2017-02-03] MEDS: ISOSORBIDE MONONITRATE ER 60 MG TAB.ER.24H. PO SCH (08:59)
[2017-02-03] MEDS: ALPRAZOLAM 0.5 MG TABLET. PO PRN (09:57)
[2017-02-03] MEDS: OXYCODONE/APAP 5/325 TABLET. PO PRN (09:58)
[2017-02-03] MEDS: NITROGLYCERIN SUBLINGUAL 0.4 MG BOTTLE OF 25. SL PRN (11:27)
[2017-02-03 11:35] VITALS: BP 128/76
[2017-02-03 14:39] VITALS: BP 119/67
--- NOTE | 2017-02-03 14:44 | PDOC ---
PROGRESS NOTES Subjective Subjective Patient reports episode of intense sharp stabbing chest pain at about 1130 AM today. He took 2 doses of nitro and 1 dose of percocet which helped some. He reports associated diaphoresis and SOB with episode. Objective Objective Vital Signs Date Time Temp Pulse Resp B/P Pulse Ox O2 Delivery O2 Flow Rate FiO2 02/03/17 11:35 97.6 96 18 128/76 96 Room Air 97.6 Intake and Output 02/03/17 07:00 Intake Total 480 ml Balance 480 ml Intake Oral 480 ml # Voids 3 Physical Exam Abdomen: Normal bowel sounds, Soft Heart: Regular rate, Normal S1, Normal S2 Extremities: No clubbing, No edema General: Alert, Oriented X3, Cooperative, No acute distress Lungs: Clear to auscultation, Normal air movement Neuro: Normal speech Psych/Mental Status: Mental status NL Assessment Assessment Problems Medical Problems: (1) CAD (coronary artery disease) Status: Acute (2) Chest pain Status: Acute (3) NSTEMI (non-ST elevated myocardial infarction) Status: Acute Plan Plan of Care Stress MPI test performed - moderate sized mixed perfusion defect over lateral wall, no significant ischemia, EF 70%, normal wall motion, low risk for future cardiac events Chest pain events may be due to anxiety provoking situations Continue medications Thank you for the consultation! Comment Review of Relevant I have reviewed the following items carmen (where applicable) has been applied. Labs Laboratory Tests Test 02/02/17 03:25 Triglycerides Level 138mg/dL (0-150) Cholesterol Level 165mg/dL (0-200) LDL Cholesterol, Calculated 109mg/dL (0-100) VLDL Cholesterol, Calculated 28mg/dL (0-40) HDL Cholesterol 28mg/dL (40-60) Cholesterol/HDL Ratio 5.9 Medications Current Medications Aspirin (Children'S Aspirin) 324 mg 1X ONCE PO ; Start 01/31/17 at 20:30; Stop 01/31/17 at 20:31; Status DC Nitroglycerin (Nitrostat) 0.4 mg PRN Q5MIN PRN SL CHEST PAIN Last administered on 01/31/17 20:13; Start 01/31/17 at 20:00; Stop 01/31/17 at 21:08; Status DC Morphine Sulfate 2 mg 2 mg PRN Q1HR PRN IV SEVERE PAIN Last administered on 02/01 06:16; Start 01/31/17 at 20:00; Stop 02/01/17 at 06:16; Status DC Sodium Chloride (Iv Sodium Chloride 0.9% 500ml Bag) 500 ml @ 500 mls/hr 1X ONCE IV Last administered on 01/31/17 20:36; Start 01/31/17 at 20:45; Stop at 21:44; Status DC Enoxaparin Sodium (Lovenox Per Pharmacy Treatment Dosing) 1 each PRN DAILY PRN MC SEE COMMENTS; Start 01/31/17 at 21:00; Stop 02/03/17 at 10:43; Status DC Enoxaparin Sodium (Lovenox 100mg Syringe) 90 mg Q12HR SQ Last administered on 09:01; Start 01/31/17 at 21:00 Ondansetron HCl (Zofran) 4 mg PRN Q8HRS PRN IV NAUSEA/VOMITING; Start 01/31/17 at 21:15; Stop 02/01/17 at 08:53; Status DC Morphine Sulfate 2 mg PRN Q2HR PRN IV PAIN Last administered on 02/01/17 10:42 ; Start 01/31/17 at 21:15; Stop 02/01/17 at 21:14; Status DC Nitroglycerin (Nitrostat) 0.4 mg PRN Q5MIN PRN SL CHEST PAIN; Start 01/31/17 at 21:15; Stop 02/01/17 at 14:02; Status DC Ondansetron HCl (Zofran) 4 mg PRN Q6HRS PRN IV NAUSEA/VOMITING; Start 02/01/17 at 08:51 Aspirin (Children'S Aspirin) 81 mg HS PO Last administered on 02/02/17 20:36; Start 02/01/17 at 21:00 Calcium Carbonate/ Glycine (Tums) 500 mg BID PO Last administered on 02/03/17 08:53; Start 02/01/17 at 09:00 Gemfibrozil (Lopid) 600 mg BID PO Last administered on 02/03/17 08:53; Start 02/01/17 at 09:00 Isosorbide Mononitrate (Imdur) 30 mg HS PO Last administered on 02/02/17 20:35 ; Start 02/01/17 at 21:00 Isosorbide Mononitrate (Imdur) 60 mg DAILY PO Last administered on 02/03/17 08 :59; Start 02/01/17 at 09:00 Nitroglycerin (Nitrostat) 0.4 mg PRN Q5MIN PRN SL CHEST PAIN Last administered on 02/03/17 11:27; Start 02/01/17 at 09:00 Metoprolol Tartrate (Lopressor) 100 mg BID PO Last administered on 02/03/17 08 :56; Start 02/01/17 at 09:15 Alprazolam (Xanax) 0.25 mg PRN Q8HRS PRN PO ANXIETY / AGITATION Last administered on 02/01/17 11:44; Start 02/01/17 at 11:45; Stop 02/01/17 at 11:51; Status DC Oxycodone/ Acetaminophen (Percocet 5/325) 1 tab PRN Q6HRS PRN PO PAIN Last administered on 02/03/17 09:58; Start 02/01/17 at 11:45 Alprazolam (Xanax) 0.5 mg PRN Q6HRS PRN PO ANXIETY / AGITATION Last administered on 02/02/17 13:08; Start 02/01/17 at 12:00; Stop 02/02/17 at 14:16 ; Status DC Regadenoson (Lexiscan) 0.4 mg 1X ONCE IV Last administered on 02/02/17 11:16 ; Start 02/02/17 at 08:15; Stop 02/02/17 at 08:18; Status DC Info (Anti-Coagulation Monitoring By Pharmacy) 1 each PRN DAILY PRN MC SEE COMMENTS Last administered on 02/02/17 08:33; Start 02/02/17 at 08:45 Alprazolam (Xanax) 0.5 mg PRN Q8HRS PRN PO ANXIETY / AGITATION Last administered on 02/03/17 09:57; Start 02/02/17 at 14:15 Active Scripts Active Reported Isosorbide Mononitrate Er (Isosorbide Mononitrate) 30 Mg Tab.er.24h 1 Tab PO HS Isosorbide Mononitrate Er (Isosorbide Mononitrate) 60 Mg Tab.er.24h 1 Tab PO DAILY Metoprolol Tartrate 100 Mg Tablet 1 Tab PO BID Tums (Calcium Carbonate) 200 Mg Tab.chew 400 Mg PO BID Lopid (Gemfibrozil) 600 Mg Tablet 2 Tab PO BID NITROGLYCERIN SubLingual (Nitroglycerin) 0.4 Mg Tab.subl 0.4 Mg SL PRN Q5MIN PRN Aspirin 81 Mg Tab.chew 81 Mg PO HS Vitals/I & O Vital Sign - Last 24 Hours 02/02/17 02/02/17 02/02/17 02/02/17 15:00 19:50 20:00 20:35 Temp 98.0 98.2 98.0 98.2 Pulse 69 71 71 Resp 16 20 B/P 144/77 106/69 106/69 Pulse Ox 98 98 O2 Delivery Room Air Room Air Room Air 02/02/17 02/02/17 02/02/17 02/03/17 20:36 20:36 23:20 03:30 Temp 98.0 98.1 98.0 98.1 Pulse 71 66 57 Resp 18 18 B/P 106/69 108/63 108/61 Pulse Ox 98 98 99 O2 Delivery Room Air Room Air Room Air 02/03/17 02/03/17 02/03/17 02/03/17 07:59 08:00 08:56 08:59 Temp 98.0 98.0 Pulse 66 66 66 Resp 18 B/P 121/74 121/74 121/74 Pulse Ox 95 O2 Delivery Room Air Room Air 02/03/17 02/03/17 02/03/17 02/03/17 09:58 11:15 11:27 11:35 Temp 97.6 97.6 Pulse 66 96 Resp 18 B/P 121/74 128/76 Pulse Ox 95 95 96 O2 Delivery Room Air Room Air Room Air Intake and Output 02/02/17 02/02/17 02/03/17 15:00 23:00 07:00 Intake Total 480 ml Balance 480 ml GEMINI BLANK MD Feb 03, 2017 14:44
== END 2017-02-03 15:45 | disposition still patient (30) | DRG 282 ==
LOC: ER 19:42 → EEVIPCON 19:42 → 2 NORTH 21:04
PROVIDERS: ADMIT Internal Medicine; ATTEND Internal Medicine
DX: I21.4 Non-ST elevation (NSTEMI) myocardial infarction (principal); I25.10 Atherosclerotic heart disease of native coronary artery without angina pectoris; E78.5 Hyperlipidemia, unspecified; F41.0 Panic disorder [episodic paroxysmal anxiety]; I11.0 Hypertensive heart disease with heart failure; I50.9 Heart failure, unspecified; K21.9 Gastro-esophageal reflux disease without esophagitis; I73.9 Peripheral vascular disease, unspecified; F43.10 Post-traumatic stress disorder, unspecified; F41.9 Anxiety disorder, unspecified; Z95.1 Presence of aortocoronary bypass graft; I25.2 Old myocardial infarction
CPT/HCPCS: 36415; 71010; 78452; 80048; 80061; 80076; 83690; 83880; 84484; 85027; 87641; 93005; 93017; 96374; 96375; 96376; A9500; J1650; J2270; J2785; J7040; 99285-25